=== PATIENT | female | born 1980 | race Caucasian/White ===

== ENCOUNTER 2019-05-20 17:11 | Emergency (ER) | payer MEDICAID ==
[~2019-05-20] VITALS: Ht 167.6 cm; Wt 81.0 kg
[2019-05-20 17:42] LABS: CLARITY,URINE CLEAR (Clear); COLOR,URINE YELLOW (Yellow); GLUCOSE, URINE NEGATIVE (Neg); KETONES,URINE NEGATIVE (Neg); LEUKOCYTE ESTERASE ,URINE NEGATIVE (Neg); NITRITES, URINE NEGATIVE (Neg); OCCULT BLOOD,URINE LARGE (Neg); PROTEIN,URINE NEGATIVE (Neg); UA COLLECTION TYPE CLN CATCH MIDSTREAM; URINE HCG NEGATIVE (NEG); UROBILINOGEN,URINE 0.2 E.U/dL (0.2-1.0)
[2019-05-20 17:48] LABS: BACTERIA,URINE 1+ /HPF (Neg); WBC,URINE 0-4 /HPF (0-4)
[2019-05-20 17:50] LABS: SPERM FEW /HPF; SQUAMOUS EPITHELIAL CELL,UR MANY /LPF (FEW)
[2019-05-20 17:52] LABS: MUCUS STRANDS NONE SEEN /LPF (Neg)
[2019-05-20] MEDS ORDERED: ondansetron/PF 4mg/2ml inj IV ONE (18:05)
[2019-05-20] MEDS ORDERED: normal saline 1000ML IV soln IVB ONE (18:05)
[2019-05-20] MEDS: morphine 4 MG/ML inj SYRINge IV PRN ×2 (18:18→19:33)
[2019-05-20 18:29] LABS: BASOPHILS % (AUTO) 0.2 % (0-1); EOSINOPHILS # (AUTO) 0.1 X10'3 (0-0.9); HEMATOCRIT 44.8 % (35.0-45.0); HEMOGLOBIN 15.4 g/dl (12.0-16.0); LYMPHOCYTES # (AUTO) 2.3 X10'3 (1.1-4.8); LYMPHOCYTES % (AUTO) 23.4 % (21-51); MEAN CORPUSCULAR HEMOGLOBIN 31.1 PG (27.0-31.0); MEAN CORPUSCULAR HGB CONC 34.4 g/dL (33.0-36.5); MEAN CORPUSCULAR VOLUME 90.2 FL (78-98); MEAN PLATELET VOLUME 8.1 FL (7.4-10.4); MONOCYTES # (AUTO) 0.7 X10'3 (0-0.9); MONOCYTES % (AUTO) 6.7 % (2-12); NEUTROPHILS # (AUTO) 6.8 X10'3 (1.8-7.7); NEUTROPHILS % (AUTO) 68.7 % (42-75); PLATELET COUNT 307 X10'3 (140-440); RED BLOOD COUNT 4.97 X10'6 (4.20-5.60); RED CELL DISTRIBUTION WIDTH 13.9 % (11.5-14.5); WHITE BLOOD COUNT 9.9 X10'3 (4.5-11.0)
[2019-05-20 18:44] LABS: ALANINE AMINOTRANSFERASE 30 U/L (12-78); ALKALINE PHOSPHATASE 58 IU/L (46-116); ANION GAP 10 (8-16); ASPARTATE AMINO TRANSFERASE 27 U/L (10-37); BILIRUBIN,TOTAL 0.6 MG/DL (0.1-1.0); BLOOD UREA NITROGEN 9 MG/DL (7-18); BUN/CREATININE RATIO 10.3 (6.6-38.0); CHLORIDE 103 MMOL/L (99-107); CREATININE 0.87 MG/DL (0.40-0.90); GLUCOSE 94 MG/DL (70-104); LIPASE 69 U/L (73-393); POTASSIUM 4.3 MMOL/L (3.5-5.1); SODIUM 139 MMOL/L (135-145); TOTAL CARBON DIOXIDE 26.1 MMOL/L (24-32); eGFR 73 ML/MIN
[2019-05-20] MEDS ORDERED: HYDR-3965 PO (19:22)
[2019-05-20 19:29] VITALS: BP 149/97
== END 2019-05-20 19:53 | disposition home or self-care (01) ==
LOC: ER 17:11
DX: N23 Unspecified renal colic (principal); Z88.0 Allergy status to penicillin; Z79.899 Other long term (current) drug therapy
CPT/HCPCS: 36415; 74176; 80053; 81001; 81025; 83690; 85025; 96374; 96375; 96376; 99284; J2270; J2405; J7030

== ENCOUNTER 2019-06-03 16:47 | Inpatient (IN) | payer MEDICAID ==
[~2019-06-03] VITALS: Ht 167.6 cm; Wt 80.0 kg
[~2019-06-03 16:47] MED LIST: HYDR-3965 PO
--- NOTE | 2019-06-03 17:18 | NUR ---
DEE WITH LAB CALLED STATES URINE SAMPLE SENT BY PT IS NOT ENOUGH TO PROCESS, PT WILL NEED TO PROVIDE ANOTHER SAMPLE ONCE SHE IS PLACED IN A ROOM.
[2019-06-03 17:25] LABS: BASOPHILS % (AUTO) 0.2 % (0-1); EOSINOPHILS # (AUTO) 0.1 X10'3 (0-0.9); EOSINOPHILS % (AUTO) 0.8 % (0-6); HEMATOCRIT 45.2 % (35.0-45.0); HEMOGLOBIN 15.7 g/dl (12.0-16.0); LYMPHOCYTES % (AUTO) 9.1 % (21-51); MEAN CORPUSCULAR HEMOGLOBIN 31.2 PG (27.0-31.0); MEAN CORPUSCULAR HGB CONC 34.8 g/dL (33.0-36.5); MEAN CORPUSCULAR VOLUME 89.7 FL (78-98); MEAN PLATELET VOLUME 8.3 FL (7.4-10.4); MONOCYTES # (AUTO) 0.5 X10'3 (0-0.9); MONOCYTES % (AUTO) 4.6 % (2-12); NEUTROPHILS # (AUTO) 9.5 X10'3 (1.8-7.7); NEUTROPHILS % (AUTO) 85.3 % (42-75); PLATELET COUNT 313 X10'3 (140-440); RED BLOOD COUNT 5.04 X10'6 (4.20-5.60); RED CELL DISTRIBUTION WIDTH 13.3 % (11.5-14.5); WHITE BLOOD COUNT 11.2 X10'3 (4.5-11.0)
[2019-06-03 17:40] LABS: ALANINE AMINOTRANSFERASE 46 U/L (12-78); ALBUMIN 4.1 G/DL (3.4-5.0); ALBUMIN/GLOBULIN RATIO 1.1 (1.1-1.5); ALKALINE PHOSPHATASE 57 IU/L (46-116); AMYLASE 24 U/L (25-115); ANION GAP 12 (8-16); ASPARTATE AMINO TRANSFERASE 42 U/L (10-37); BILIRUBIN,TOTAL 1.1 MG/DL (0.1-1.0); BLOOD UREA NITROGEN 5 MG/DL (7-18); BUN/CREATININE RATIO 5.5 (6.6-38.0); CALCIUM 9.3 MG/DL (8.5-10.1); CHLORIDE 98 MMOL/L (99-107); CREATININE 0.91 MG/DL (0.40-0.90); GLUCOSE 112 MG/DL (70-104); LIPASE < 50 U/L (73-393); POTASSIUM 3.6 MMOL/L (3.5-5.1); SODIUM 137 MMOL/L (135-145); eGFR 70 ML/MIN
[2019-06-03] MEDS ORDERED: normal saline 1000ML IV soln IVB ONE ×2 (18:55→21:05)
[2019-06-03 19:18] LABS: MONOTEST NEGATIVE (Neg)
[2019-06-03] MEDS ORDERED: ondansetron/PF 4mg/2ml inj IV ONE (20:00)
[2019-06-03] MEDS ORDERED: morphine 4 MG/ML inj SYRINge IV ONE (20:00)
[2019-06-03] MEDS ORDERED: acetaminophen 325mg tablet PO ONE (21:15)
[2019-06-03] MEDS ORDERED: LORazepam 2 mg/ml vial IV ONE (22:05)
[2019-06-03] MEDS ORDERED: CefTRIAXone 2gm/D5W 50ml 50 ML IV ONE (22:15)
[2019-06-03 23:28] LABS: CLARITY,URINE SLIGHTLY CLOUDY (Clear); COLOR,URINE YELLOW (Yellow); GLUCOSE, URINE NEGATIVE (Neg); KETONES,URINE >=80 mg/dl (Neg); LEUKOCYTE ESTERASE ,URINE NEGATIVE (Neg); NITRITES, URINE NEGATIVE (Neg); OCCULT BLOOD,URINE LARGE (Neg); PROTEIN,URINE NEGATIVE (Neg); URINE HCG NEGATIVE (NEG)
[2019-06-03 23:33] LABS: UA COLLECTION TYPE CLN CATCH MIDSTREAM
[2019-06-03 23:35] LABS: WBC,URINE 0-4 /HPF (0-4)
[2019-06-03 23:36] LABS: BACTERIA,URINE NONE SEEN /HPF (Neg); MUCUS STRANDS FEW /LPF (Neg); SQUAMOUS EPITHELIAL CELL,UR FEW /LPF (FEW)
[2019-06-04] MEDS ORDERED: magnesium hydroxide 30ml (MOM) UD suspension PO PRN (00:50)
[2019-06-04] MEDS ORDERED: mag hydrox/Alum hydrox/simeth 30ml oral suspension PO PRN (00:50)
[2019-06-04] MEDS ORDERED: HYDROcodone/acetaminophen 5mg/325mg tablet PO PRN (00:50)
[2019-06-04] MEDS ORDERED: HYDROcodone/acetaminophen 10/325mg tab PO PRN (00:50)
[2019-06-04] MEDS ORDERED: potassium CL 10mEq/100ml bag 100 ML IV PRN ×2 (00:50)
[2019-06-04] MEDS ORDERED: magnesium 2GM in 50ml NS 50 ML IV PRN (00:50)
[2019-06-04] MEDS ORDERED: diphenhydrAMINE 25mg capsule PO ONE (00:50)
[2019-06-04] MEDS ORDERED: magnesium 4gm in 100ml NS 100 ML IV PRN (00:50)
[2019-06-04] MEDS ORDERED: magnesium Cl slow-release 64mg tablet PO PRN (00:50)
[2019-06-04] MEDS ORDERED: methylPREDNISolone sod succ 125mg/2ml vial IV ONE (00:50)
[2019-06-04] MEDS ORDERED: acetaminophen 325mg tablet PO PRN (00:50)
[2019-06-04] MEDS ORDERED: potassium Cl 20 mEq SR tablet PO PRN ×2 (00:50)
[2019-06-04] MEDS: ondansetron/PF 4mg/2ml inj IV PRN ×2 (01:36→08:11)
[2019-06-04] MEDS: famotidine 10mg tablet PO SCH ×2 (01:42→08:15)
[2019-06-04] MEDS: normal saline 1000ml 1,000 ML IV SCH ×3 (01:42→08:09)
--- NOTE | 2019-06-04 01:51 | NUR ---
Patient in room ED 15. I have received report from LIOR Boothe RN and had the opportunity to ask questions and assume patient care.
[2019-06-04] MEDS: diphenhydrAMINE 25mg capsule PO SCH ×2 (02:00→08:08)
[2019-06-04 03:45] VITALS: BP 126/78
--- NOTE | 2019-06-04 06:26 | NUR ---
Problems reprioritized. Patient report given, questions answered & plan of care reviewed with CYN Rios.
[2019-06-04 07:04] VITALS: BP 120/76
[2019-06-04] MEDS ORDERED: CefTRIAXone/D5W-Rocephin 1gm 50 ML IV SCH (08:00)
[2019-06-04] MEDS ORDERED: K and/or MAG REPLACEMENT MC SCH (08:00)
[2019-06-04] MEDS ORDERED: ONDA4TAB6 PO (10:40)
[2019-06-04 11:56] VITALS: BP 118/71
--- NOTE | 2019-06-04 13:41 | NUR ---
PT DISCHARGED IN STABLE CONDITION. LEFT FACILITY IN PRIVATE VEHICLE. 2 IV DC CANULAS INTACT. FOLLOW UP INSTRUCTIONS GIVEN, ALL QUESTIONS ANSWERED. ALL BELONGINGS IN HAND. Addendum: 06/04/19 at 1343 by Lara Owen RN Amended: Links added.
== END 2019-06-04 12:49 | disposition home or self-care (01) | DRG 723 ==
LOC: ER 16:47 → ED HOLD 06-04 00:50 → SUR 3N 06-04 02:00
PROVIDERS: ADMIT Family Medicine; ATTEND Internal Medicine
DX: B34.9 Viral infection, unspecified (principal); E88.89 Other specified metabolic disorders; N20.9 Urinary calculus, unspecified; R00.0 Tachycardia, unspecified; R21 Rash and other nonspecific skin eruption; Z85.41 Personal history of malignant neoplasm of cervix uteri; Z90.49 Acquired absence of other specified parts of digestive tract; Z90.710 Acquired absence of both cervix and uterus; Z88.0 Allergy status to penicillin; Z79.899 Other long term (current) drug therapy; Z87.891 Personal history of nicotine dependence
CPT/HCPCS: 36415; 74176; 76700; 80053; 81001; 81025; 82150; 83605; 83690; 84145; 85025; 85651; 86140; 86308; 87040; 87081; 87502; 87503; 96365; 96375; 99285; G0378; J0696; J2060; J2270; J2405; J2930; J7030; Q0163

== ENCOUNTER 2020-10-16 15:00 | Emergency (ER) | payer MEDICAID ==
[~2020-10-16] VITALS: Ht 167.6 cm; Wt 63.6 kg
[~2020-10-16 15:00] MED LIST changes: -HYDR-3965 PO; +ONDA4TAB6 PO
[2020-10-16] MEDS ORDERED: ondansetron 4mg rapidly disintigrating tab PO ONE (15:30)
[2020-10-16] MEDS ORDERED: morphine 4 MG/ML inj SYRINge IM ONE (15:30)
--- NOTE | 2020-10-16 16:10 | NUR ---
MD colón with Morphine given IV, given 4 mg IV Morphine instead of 6 mg IM
[2020-10-16 16:11] VITALS: BP 135/54
[2020-10-16] MEDS ORDERED: HYDR-3965 PO (16:42)
== END 2020-10-16 17:13 | disposition home or self-care (01) ==
LOC: ER 15:00
DX: S70.02XA Contusion of left hip, initial encounter (principal); S60.052A Contusion of left little finger without damage to nail, initial encounter; S00.81XA Abrasion of other part of head, initial encounter; M54.5 Low back pain; Z87.442 Personal history of urinary calculi; Z90.49 Acquired absence of other specified parts of digestive tract; Z90.710 Acquired absence of both cervix and uterus; Z88.0 Allergy status to penicillin; Z79.899 Other long term (current) drug therapy; Z72.89 Other problems related to lifestyle; V86.99XA Unspecified occupant of other special all-terrain or other off-road motor vehicle injured in nontraffic accident, initial encounter; Y93.89 Activity, other specified; Y92.488 Other paved roadways as the place of occurrence of the external cause; Y99.8 Other external cause status
CPT/HCPCS: 72131; 72192; 73140; 96372; 99285; J2270

== ENCOUNTER 2020-11-16 13:29 | Emergency (ER) | payer MEDICAID ==
[~2020-11-16] VITALS: Ht 167.6 cm; Wt 63.6 kg
[2020-11-16 13:42] VITALS: BP 162/88
[2020-11-16] MEDS ORDERED: ketorolac tromethamine 15mg/ml inj. IM ONE (14:45)
[2020-11-16] MEDS ORDERED: IBUP-1984 PO (14:54)
== END 2020-11-16 15:28 | disposition home or self-care (01) ==
LOC: ER 13:29
DX: S80.11XA Contusion of right lower leg, initial encounter (principal); M25.571 Pain in right ankle and joints of right foot; M25.561 Pain in right knee; Z88.0 Allergy status to penicillin; Z79.899 Other long term (current) drug therapy; Z87.442 Personal history of urinary calculi; Z87.440 Personal history of urinary (tract) infections; Z87.410 Personal history of cervical dysplasia; Z90.49 Acquired absence of other specified parts of digestive tract; Z90.710 Acquired absence of both cervix and uterus; Z72.89 Other problems related to lifestyle; W22.8XXA Striking against or struck by other objects, initial encounter; Y93.89 Activity, other specified; Y92.89 Other specified places as the place of occurrence of the external cause; Y99.8 Other external cause status
CPT/HCPCS: 73610; 73630; 96372; 99284; J1885

== ENCOUNTER 2020-12-04 19:09 | Emergency (ER) | payer MEDICAID ==
[~2020-12-04] VITALS: Ht 167.6 cm; Wt 63.0 kg
[2020-12-04] MEDS ORDERED: PROP40TA72 PO (21:17)
[2020-12-04] MEDS ORDERED: ketorolac trometh. 30mg/ml inj. IM ONE (22:15)
[2020-12-04] MEDS ORDERED: METH4TAB81 PO (23:46)
[2020-12-04] MEDS ORDERED: COLC1TAB2 PO (23:46)
[2020-12-04 23:52] VITALS: BP 124/85
== END 2020-12-04 23:59 | disposition home or self-care (01) ==
LOC: ER 19:09
DX: M25.531 Pain in right wrist (principal); Z87.440 Personal history of urinary (tract) infections; Z85.41 Personal history of malignant neoplasm of cervix uteri; Z90.89 Acquired absence of other organs; Z90.710 Acquired absence of both cervix and uterus; Z72.89 Other problems related to lifestyle; Z88.0 Allergy status to penicillin; Z79.899 Other long term (current) drug therapy
CPT/HCPCS: 73110; 73130; 96372; 99284; J1885

== ENCOUNTER 2020-12-11 02:32 | Emergency (ER) | payer MEDICAID ==
[~2020-12-11] VITALS: Ht 167.6 cm; Wt 65.0 kg
[~2020-12-11 02:32] MED LIST changes: +COLC1TAB2 PO; +METH4TAB81 PO; +PROP40TA72 PO
[2020-12-11] MEDS ORDERED: colchicine 0.6mg tablet PO ONE (04:00)
[2020-12-11] MEDS ORDERED: naproxen 500mg tablet PO ONE (04:00)
[2020-12-11 04:34] LABS: ALANINE AMINOTRANSFERASE 46 U/L (12-78); ALBUMIN 3.2 G/DL (3.4-5.0); ALBUMIN/GLOBULIN RATIO 0.6 (1.1-1.5); ALKALINE PHOSPHATASE 66 IU/L (46-116); ANION GAP 15 (8-16); ASPARTATE AMINO TRANSFERASE 31 U/L (10-37); BILIRUBIN,TOTAL 0.2 MG/DL (0.1-1.0); BLOOD UREA NITROGEN 5 MG/DL (7-18); BUN/CREATININE RATIO 8.2 (6.6-38.0); C-REACTIVE PROTEIN 3.62 MG/DL (0.0-0.5); CALCIUM 8.8 MG/DL (8.5-10.1); CHLORIDE 103 MMOL/L (99-107); CREATININE 0.61 MG/DL (0.40-0.90); GLUCOSE 83 MG/DL (70-104); POTASSIUM 3.5 MMOL/L (3.5-5.1); SODIUM 140 MMOL/L (135-145); TOTAL CARBON DIOXIDE 22.4 MMOL/L (24-32); TOTAL PROTEIN 8.2 G/DL (6.4-8.2); eGFR > 90 ML/MIN
[2020-12-11 04:48] LABS: EOSINOPHILS # (AUTO) 0.1 X10'3 (0-0.9); LYMPHOCYTES # (AUTO) 2.5 X10'3 (1.1-4.8); MONOCYTES # (AUTO) 0.7 X10'3 (0-0.9); RED CELL DISTRIBUTION WIDTH 13.4 % (11.5-14.5); WHITE BLOOD COUNT 12.6 X10'3 (4.5-11.0)
[2020-12-11 05:03] LABS: RHEUM FACTOR QUAL REFLEX TITER NEGATIVE (Neg)
[2020-12-11 05:04] LABS: BASOPHILS % (AUTO) 0.2 % (0-1); EOSINOPHILS % (AUTO) 0.7 % (0-6); HEMATOCRIT 43.3 % (35.0-45.0); HEMOGLOBIN 14.9 g/dl (12.0-16.0); LYMPHOCYTES % (AUTO) 20.1 % (21-51); MEAN CORPUSCULAR HEMOGLOBIN 32.7 PG (27.0-31.0); MEAN CORPUSCULAR HGB CONC 34.4 g/dL (33.0-36.5); MEAN PLATELET VOLUME 6.9 FL (7.4-10.4); MONOCYTES % (AUTO) 5.7 % (2-12); NEUTROPHILS # (AUTO) 9.2 X10'3 (1.8-7.7); NEUTROPHILS % (AUTO) 73.3 % (42-75); PLATELET COUNT 535 X10'3 (140-440); RED BLOOD COUNT 4.56 X10'6 (4.20-5.60)
[2020-12-11 06:45] LABS: TOTAL CELLS COUNTED 100
[2020-12-11 06:46] LABS: PLATELET ESTIMATE INCREASED
[2020-12-11 06:47] LABS: STOMATOCYTES 1+
[2020-12-11] MEDS ORDERED: morphine 4 MG/ML inj SYRINge IV ONE ×3 (08:15→09:35)
[2020-12-11] MEDS ORDERED: HYDROcodone/acetaminophen 10/325mg tab PO ONE (11:25)
[2020-12-11] MEDS ORDERED: ondansetron/PF 4mg/2ml inj IV ONE (11:25)
[2020-12-11] MEDS ORDERED: HYDR-3964 PO (11:27)
[2020-12-11] MEDS ORDERED: ONDA4TAB6 PO (11:27)
[2020-12-11 11:57] VITALS: BP 127/83
== END 2020-12-11 11:58 | disposition home or self-care (01) ==
LOC: ER 02:32
DX: M25.531 Pain in right wrist (principal); M25.431 Effusion, right wrist; Z88.0 Allergy status to penicillin; Z79.899 Other long term (current) drug therapy; Z87.442 Personal history of urinary calculi; Z87.440 Personal history of urinary (tract) infections; Z87.410 Personal history of cervical dysplasia; Z90.49 Acquired absence of other specified parts of digestive tract; Z90.710 Acquired absence of both cervix and uterus
CPT/HCPCS: 29125; 73221; 80053; 84550; 85007; 85025; 85651; 86140; 86430; 96374; 96375; 96376; 99284; J2270; J2405; 94760

== ENCOUNTER 2021-01-04 23:37 | Emergency (ER) | payer MEDICAID ==
[~2021-01-04] VITALS: Ht 167.6 cm; Wt 63.2 kg
[~2021-01-04 23:37] MED LIST changes: +HYDR-3964 PO
[2021-01-04 23:39] VITALS: BP 156/81
[2021-01-05] MEDS ORDERED: TETanus/Pertussis (Acell)/Diphther VAC/PF (Tdap-Adult) 0.5ml syringe IMVAC ONE (00:35)
== END 2021-01-05 01:15 | disposition home or self-care (01) ==
LOC: ER 23:37
DX: S60.211A Contusion of right wrist, initial encounter (principal); S00.531A Contusion of lip, initial encounter; S00.31XA Abrasion of nose, initial encounter; R22.0 Localized swelling, mass and lump, head; Z87.410 Personal history of cervical dysplasia; Z87.440 Personal history of urinary (tract) infections; Z87.442 Personal history of urinary calculi; Z90.49 Acquired absence of other specified parts of digestive tract; Z90.710 Acquired absence of both cervix and uterus; Z88.0 Allergy status to penicillin; Z79.899 Other long term (current) drug therapy; W19.XXXA Unspecified fall, initial encounter; Z91.81 History of falling; Y93.89 Activity, other specified; Y92.89 Other specified places as the place of occurrence of the external cause; Y99.8 Other external cause status
CPT/HCPCS: 73130; 90715; 99284

== ENCOUNTER 2021-10-23 10:04 | Emergency (ER) | payer MEDICAID ==
[~2021-10-23] VITALS: Ht 167.6 cm; Wt 63.6 kg
[~2021-10-23 10:04] MED LIST changes: -HYDR-3964 PO
[2021-10-23 10:33] VITALS: BP 158/86
[2021-10-23] MEDS ORDERED: dexamethasone sod phosphate 10mg/ml inj PO STA (13:30)
[2021-10-23] MEDS ORDERED: triamcinolone acetonide 40mg/ml inj IM ONE (14:15)
== END 2021-10-23 14:46 | disposition home or self-care (01) ==
LOC: ER 10:05
DX: J02.9 Acute pharyngitis, unspecified (principal); L23.7 Allergic contact dermatitis due to plants, except food; Z87.440 Personal history of urinary (tract) infections; Z87.442 Personal history of urinary calculi; Z87.410 Personal history of cervical dysplasia; Z90.49 Acquired absence of other specified parts of digestive tract; Z90.710 Acquired absence of both cervix and uterus; Z88.0 Allergy status to penicillin; Z79.899 Other long term (current) drug therapy
CPT/HCPCS: 87081; 87880; 96372; 99283; J1100; J3301

== ENCOUNTER 2021-12-13 23:37 | Emergency (ER) | payer MEDICAID, OTHER ==
[~2021-12-13] VITALS: Ht 167.6 cm; Wt 63.6 kg
[2021-12-14 00:38] LABS: URINE HCG NEGATIVE (NEG)
[2021-12-14 00:39] LABS: BASOPHILS % (AUTO) 0.4 % (0-1); EOSINOPHILS # (AUTO) 0.1 X10'3 (0-0.9); EOSINOPHILS % (AUTO) 0.7 % (0-6); HEMATOCRIT 43.7 % (35.0-45.0); HEMOGLOBIN 14.7 g/dl (12.0-16.0); LYMPHOCYTES # (AUTO) 2.8 X10'3 (1.1-4.8); LYMPHOCYTES % (AUTO) 36.8 % (21-51); MEAN CORPUSCULAR HEMOGLOBIN 31.4 PG (27.0-31.0); MEAN CORPUSCULAR HGB CONC 33.7 g/dL (33.0-36.5); MEAN CORPUSCULAR VOLUME 93.2 FL (78-98); MEAN PLATELET VOLUME 7.5 FL (7.4-10.4); MONOCYTES # (AUTO) 0.5 X10'3 (0-0.9); MONOCYTES % (AUTO) 6.3 % (2-12); NEUTROPHILS # (AUTO) 4.2 X10'3 (1.8-7.7); NEUTROPHILS % (AUTO) 55.8 % (42-75); PLATELET COUNT 281 X10'3 (140-440); RED BLOOD COUNT 4.69 X10'6 (4.20-5.60); RED CELL DISTRIBUTION WIDTH 13.9 % (11.5-14.5); WHITE BLOOD COUNT 7.6 X10'3 (4.5-11.0)
[2021-12-14 00:43] LABS: URINE AMPHETAMINE SCREEN NEGATIVE (Neg); URINE BARBITUATE SCREEN NEGATIVE (Neg); URINE BENZODIAZEPINES SCREEN NEGATIVE (Neg); URINE CANNABINOID SCREEN NEGATIVE (Neg); URINE COCAINE SCREEN NEGATIVE (Neg); URINE METHADONE SCREEN NEGATIVE (Neg); URINE OPIATE SCREEN NEGATIVE (Neg); URINE PHENCYCLIDINE SCREEN NEGATIVE (Neg)
[2021-12-14 00:52] LABS: ALANINE AMINOTRANSFERASE 79 U/L (12-78); ALBUMIN 3.7 G/DL (3.4-5.0); ALKALINE PHOSPHATASE 54 IU/L (46-116); ANION GAP 11 (8-16); ASPARTATE AMINO TRANSFERASE 91 U/L (10-37); BILIRUBIN,TOTAL 0.3 MG/DL (0.1-1.0); BLOOD UREA NITROGEN 5 MG/DL (7-18); BUN/CREATININE RATIO 7.4 (6.6-38.0); CALCIUM 8.2 MG/DL (8.5-10.1); CHLORIDE 102 MMOL/L (99-107); CREATININE 0.68 MG/DL (0.40-0.90); GLUCOSE 95 MG/DL (70-104); POTASSIUM 3.7 MMOL/L (3.5-5.1); SODIUM 139 MMOL/L (135-145); TOTAL PROTEIN 7.3 G/DL (6.4-8.2); eGFR > 90 ML/MIN
[2021-12-14 00:54] LABS: ETHANOL 0.308 GM/DL (0.0-0.010)
[2021-12-14 01:09] LABS: ACETAMINOPHEN < 2.0 UG/ML (10-30)
--- NOTE | 2021-12-14 03:38 | NUR ---
Gave report to CYN Valle in overflow.
--- NOTE | 2021-12-14 03:50 | NUR ---
Patient brought over from ED and placed in bed 25. Pt is pleasant and in no apparent distress. Pt stated she was tired and wanting to go to sleep. Pt was brought an extra blanket and is now resting with her eyes closed.
--- NOTE | 2021-12-14 04:12 | NUR ---
[facility]
--- NOTE | 2021-12-14 05:34 | NUR ---
Pt is sleeping on right side. RN asked pt if she took any daily meds to fill out med rec and she stated that she does not. Pt seemed very pleasant and respectful.
--- NOTE | 2021-12-14 06:40 | NUR ---
Patient sleeping supine. No distress observed. Continue to monitor.
--- NOTE | 2021-12-14 08:17 | NUR ---
RN awoke patient to eat breakfast but patient went back to sleep. No distress observed. Continue to monitor.
--- NOTE | 2021-12-14 09:40 | NUR ---
Patient speaking to her significant other on the phone. No distress observed. Continue to monitor.
--- NOTE | 2021-12-14 10:51 | NUR ---
Patient on the phone speaking to her brother. No distress observed. Continue to monitor.
--- NOTE | 2021-12-14 11:21 | NUR ---
Briana [facility], evaluating patient. No distress observed. Continue to monitor.
--- NOTE | 2021-12-14 11:32 | NUR ---
[facility] 5150 [facility]. Patient feels she is in a dark place and doesn't feel safe to go home. Continue to monitor.
--- NOTE | 2021-12-14 12:11 | NUR ---
Patient eating lunch. No distress observed. Continue to monitor.
--- NOTE | 2021-12-14 14:07 | NUR ---
Patient sleeping on left side. No distress observed. Continue to monitor.
--- NOTE | 2021-12-14 15:20 | NUR ---
Patient accepted to [facility] by Dot Roberson NP. 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
--- NOTE | 2021-12-14 18:47 | NUR ---
Note ivánberyl in ED - 12/14/21 at 1856 by JEANNINE One to one with the patient to assess severity of depressive symptoms and self harm risk. The patient has been resting quietly on her bed after eating dinner and visiting with her mother. She is alert and oriented. She reports feeling fatigued and that she has not been sleeping well at night. She alos reports high anxiety which she describes as chronic "for years" She continues to feel suicidal and stated that she wishes her suicide attempt would have been successful last night. She stated that she doesn't feel she has anything worth living for in her life. She is aware that she is on a 5150 hold.
[2021-12-14 19:49] VITALS: BP 119/65
== END 2021-12-14 19:53 ==
LOC: ER 23:38
DX: T39.312A Poisoning by propionic acid derivatives, intentional self-harm, initial encounter (principal); Z20.822 Contact with and (suspected) exposure to COVID-19; R10.9 Unspecified abdominal pain; F17.200 Nicotine dependence, unspecified, uncomplicated; Z87.440 Personal history of urinary (tract) infections; Z87.442 Personal history of urinary calculi; Z87.410 Personal history of cervical dysplasia; Z90.49 Acquired absence of other specified parts of digestive tract; Z90.710 Acquired absence of both cervix and uterus; Z88.0 Allergy status to penicillin; Z79.899 Other long term (current) drug therapy; Y92.89 Other specified places as the place of occurrence of the external cause
CPT/HCPCS: 36415; 80053; 80305; 80320; 80329; 81025; 84443; 85025; 87635; 99285; C9803

== ENCOUNTER 2022-06-06 18:47 | Emergency (ER) | payer OTHER ==
[~2022-06-06] VITALS: Ht 167.6 cm; Wt 68.2 kg
[2022-06-06 19:17] VITALS: BP 122/66
== END 2022-06-06 20:51 | disposition left against medical advice (07) ==
LOC: ER 18:48
DX: R10.9 Unspecified abdominal pain (principal); Z53.21 Procedure and treatment not carried out due to patient leaving prior to being seen by health care provider

== ENCOUNTER 2022-11-22 22:30 | Emergency (ER) | payer MEDICAID, OTHER ==
[~2022-11-22] VITALS: Ht 167.6 cm; Wt 79.5 kg
[2022-11-22 22:54] LABS: BASOPHILS # (AUTO) 0.1 X10'3 (0-0.2); BASOPHILS % (AUTO) 1.1 % (0-1); EOSINOPHILS # (AUTO) 0.1 X10'3 (0-0.9); EOSINOPHILS % (AUTO) 1.2 % (0-6); HEMATOCRIT 46.3 % (35.0-45.0); HEMOGLOBIN 15.5 g/dl (12.0-16.0); MEAN CORPUSCULAR HEMOGLOBIN 29.4 PG (27.0-31.0); MEAN CORPUSCULAR HGB CONC 33.4 g/dL (33.0-36.5); MEAN CORPUSCULAR VOLUME 88.2 FL (78-98); MEAN PLATELET VOLUME 8.3 FL (7.4-10.4); MONOCYTES # (AUTO) 0.6 X10'3 (0-0.9); MONOCYTES % (AUTO) 6.7 % (2-12); NEUTROPHILS # (AUTO) 4.6 X10'3 (1.8-7.7); PLATELET COUNT 390 X10'3 (140-440); RED BLOOD COUNT 5.25 X10'6 (4.20-5.60); RED CELL DISTRIBUTION WIDTH 13.4 % (11.5-14.5); WHITE BLOOD COUNT 9.5 X10'3 (4.5-11.0)
[2022-11-22 23:11] LABS: ALANINE AMINOTRANSFERASE 21 U/L (12-78); ALBUMIN 4.5 G/DL (3.4-5.0); ALBUMIN/GLOBULIN RATIO 1.3 (1.1-1.5); ALKALINE PHOSPHATASE 56 IU/L (46-116); ANION GAP 9 (8-16); ASPARTATE AMINO TRANSFERASE 18 U/L (10-37); BILIRUBIN,TOTAL 0.4 MG/DL (0.1-1.0); BLOOD UREA NITROGEN 7 MG/DL (7-18); CALCIUM 9.3 MG/DL (8.5-10.1); CHLORIDE 108 MMOL/L (99-107); GLUCOSE 88 MG/DL (70-104); POTASSIUM 3.6 MMOL/L (3.5-5.1); SODIUM 141 MMOL/L (135-145); TOTAL CARBON DIOXIDE 24.1 MMOL/L (24-32); TOTAL PROTEIN 7.9 G/DL (6.4-8.2); eGFR > 90 ML/MIN
[2022-11-23] MEDS ORDERED: ONDA8TAB13 PO (00:37)
[2022-11-23] MEDS ORDERED: metoclopramide 10mg tablet PO ONE (00:40)
[2022-11-23 00:57] VITALS: BP 121/75
== END 2022-11-23 00:58 | disposition home or self-care (01) ==
LOC: ER 22:30
DX: R11.2 Nausea with vomiting, unspecified (principal); R19.7 Diarrhea, unspecified; R06.02 Shortness of breath; Z90.49 Acquired absence of other specified parts of digestive tract; Z90.710 Acquired absence of both cervix and uterus; Z87.442 Personal history of urinary calculi; Z88.0 Allergy status to penicillin; Z79.899 Other long term (current) drug therapy
CPT/HCPCS: 36415; 71045; 80053; 83880; 84484; 85025; 93005; 99285

== ENCOUNTER 2023-05-07 09:47 | Inpatient (IN) | payer MEDICAID ==
[~2023-05-07] VITALS: Ht 167.6 cm; Wt 85.9 kg
[2023-05-07] VITALS (12 sets, daily range): BP systolic 136–158; BP diastolic 67–94; PULSE 67–111; RESP 14–20; TEMP 97.6–98; O2SAT 97–98
[~2023-05-07 09:47] MED LIST changes: -COLC1TAB2 PO; -METH4TAB81 PO; -ONDA4TAB6 PO; +ONDA8TAB13 PO; -PROP40TA72 PO
[2023-05-07] MEDS ORDERED: ondansetron/PF 4mg/2ml inj IV ONE (09:55)
[2023-05-07] MEDS ORDERED: morphine 4 MG/ML inj SYRINge IV ONE ×2 (09:55→12:05)
[2023-05-07 10:54] LABS: BASOPHILS % (AUTO) 0.2 % (0-1); EOSINOPHILS # (AUTO) 0.1 X10'3 (0-0.9); EOSINOPHILS % (AUTO) 0.7 % (0-6); HEMATOCRIT 43.6 % (35.0-45.0); HEMOGLOBIN 14.8 g/dl (12.0-16.0); LYMPHOCYTES # (AUTO) 2.4 X10'3 (1.1-4.8); LYMPHOCYTES % (AUTO) 23.5 % (21-51); MEAN CORPUSCULAR HEMOGLOBIN 29.6 PG (27.0-31.0); MEAN CORPUSCULAR VOLUME 87.3 FL (78-98); MEAN PLATELET VOLUME 7.6 FL (7.4-10.4); MONOCYTES # (AUTO) 0.5 X10'3 (0-0.9); MONOCYTES % (AUTO) 4.8 % (2-12); NEUTROPHILS # (AUTO) 7.3 X10'3 (1.8-7.7); NEUTROPHILS % (AUTO) 70.8 % (42-75); PLATELET COUNT 364 X10'3 (140-440); RED CELL DISTRIBUTION WIDTH 13.3 % (11.5-14.5); WHITE BLOOD COUNT 10.3 X10'3 (4.5-11.0)
[2023-05-07 10:56] LABS: BILIRUBIN,URINE NEGATIVE (Neg); CLARITY,URINE CLOUDY (Clear); COLOR,URINE YELLOW (Yellow); GLUCOSE, URINE NEGATIVE (Neg); KETONES,URINE NEGATIVE (Neg); LEUKOCYTE ESTERASE ,URINE SMALL (Neg); NITRITES, URINE POSITIVE (Neg); OCCULT BLOOD,URINE MODERATE (Neg); PH,URINE 6.5 (4.8-8.0); PROTEIN,URINE 100 mg/dl (Neg); UROBILINOGEN,URINE 0.2 E.U/dL (0.2-1.0)
[2023-05-07 11:09] LABS: ALANINE AMINOTRANSFERASE 19 U/L (12-78); ALBUMIN 4.2 G/DL (3.4-5.0); ALBUMIN/GLOBULIN RATIO 1.1 (1.1-1.5); ALKALINE PHOSPHATASE 59 IU/L (46-116); AMYLASE 49 U/L (25-115); ANION GAP 11 (8-16); ASPARTATE AMINO TRANSFERASE 18 U/L (10-37); BILIRUBIN,TOTAL 0.6 MG/DL (0.1-1.0); BLOOD UREA NITROGEN 8 MG/DL (7-18); BUN/CREATININE RATIO 10.8 (10.0-20.0); CALCIUM 9.6 MG/DL (8.5-10.1); CHLORIDE 100 MMOL/L (99-107); CREATININE 0.74 MG/DL (0.40-0.90); GLUCOSE 95 MG/DL (70-104); LIPASE 23 U/L (16-77); POTASSIUM 3.7 MMOL/L (3.5-5.1); SODIUM 137 MMOL/L (135-145); TOTAL CARBON DIOXIDE 26.1 MMOL/L (24-32); TOTAL PROTEIN 8.1 G/DL (6.4-8.2); eCRCL 95 ML/MIN; eGFR 87 ML/MIN
[2023-05-07 11:09] LABS: SQUAMOUS EPITHELIAL CELL,UR MANY /LPF (FEW); UA COLLECTION TYPE CLN CATCH MIDSTREAM
[2023-05-07 11:10] LABS: BACTERIA,URINE 4+ /HPF (Neg); WBC CLUMPS,URINE MANY /HPF (NEGATIVE); WBC,URINE TNTC /HPF (0-4)
[2023-05-07 11:11] LABS: RBC,URINE TNTC /HPF (0-2)
[2023-05-07] MEDS ORDERED: ketorolac tromethamine 15mg/ml inj. IV ONE (12:05)
[2023-05-07] MEDS ORDERED: normal saline 1000ml 1,000 ML IV ONE (12:05)
[2023-05-07] MEDS ORDERED: ondansetron/PF 4mg/2ml inj IM ONE (12:05)
[2023-05-07] MEDS ORDERED: morphine 2 MG/ML inj. syringe IV PRN ×2 (13:05→18:20)
[2023-05-07] MEDS ORDERED: potassium Cl 20 mEq SR tablet PO PRN ×2 (13:05)
[2023-05-07] MEDS ORDERED: magnesium hydroxide 30ml (MOM) UD suspension PO PRN (13:05)
[2023-05-07] MEDS ORDERED: HYDROcodone/acetaminophen 5mg/325mg tablet PO PRN (13:05)
[2023-05-07] MEDS ORDERED: acetaminophen 325mg tablet PO PRN ×2 (13:05)
[2023-05-07] MEDS ORDERED: magnesium 2GM in 50ml NS 50 ML IV PRN (13:05)
[2023-05-07] MEDS ORDERED: magnesium Cl slow-release 64mg tablet PO PRN (13:05)
[2023-05-07] MEDS ORDERED: mag hydrox/Alum hydrox/simeth 30ml oral suspension PO PRN (13:05)
[2023-05-07] MEDS ORDERED: magnesium 4gm in 100ml NS 100 ML IV PRN (13:05)
[2023-05-07] MEDS ORDERED: potassium Cl 40MEQ/1/2NS 520ml 520 ML IV PRN (13:05)
[2023-05-07] MEDS ORDERED: HYDROmorphone 1 mg/ml syringe IV ONE (13:15)
--- NOTE | 2023-05-07 13:20 | NUR ---
called pharmacy to verify dilaudid so can be pulled from [facility].
--- NOTE | 2023-05-07 13:32 | NUR ---
DR. WINTERS AT BEDSIDE WANTS [facility]. CATH FOR PT. AND REPEAT URINALYSIS. PT AGREED.
--- NOTE | 2023-05-07 13:33 | NUR ---
DR. WINTERS DOES NOT WANT ANTIBIOTIC GIVEN UNTIL NEW URINE COLLECTED.
--- NOTE | 2023-05-07 13:45 | NUR ---
dr. rondon and resident at bedside. Dr. Rondon wants antibiotic given now.
[2023-05-07 13:50] LABS: BILIRUBIN,URINE NEGATIVE (Neg); CLARITY,URINE CLOUDY (Clear); COLOR,URINE YELLOW (Yellow); GLUCOSE, URINE NEGATIVE (Neg); KETONES,URINE 15 mg/dl (Neg); LEUKOCYTE ESTERASE ,URINE MODERATE (Neg); NITRITES, URINE POSITIVE (Neg); OCCULT BLOOD,URINE MODERATE (Neg); PROTEIN,URINE TRACE mg/dl (Neg); UROBILINOGEN,URINE 0.2 E.U/dL (0.2-1.0)
[2023-05-07 13:55] LABS: UA COLLECTION TYPE STRAIGHT CATH
[2023-05-07 13:56] LABS: SQUAMOUS EPITHELIAL CELL,UR MANY /LPF (FEW)
[2023-05-07 13:57] LABS: BACTERIA,URINE 4+ /HPF (Neg); TRANSITIONAL EPI CELLS,URINE MODERATE /HPF; WBC CLUMPS,URINE MANY /HPF (NEGATIVE)
[2023-05-07 13:58] LABS: RBC,URINE TNTC /HPF (0-2); WBC,URINE TNTC /HPF (0-4)
[2023-05-07] MEDS ORDERED: NO HOME MEDS (14:55)
[2023-05-07] MEDS: normal saline 1000ml 1,000 ML IV SCH (14:55)
[2023-05-07] MEDS: CefTRIAXone 2gm/D5W 50ml BAG 50 ML IV SCH (14:57)
[2023-05-07] MEDS ORDERED: cefepime 2g/NS 100ml ADVANTAGE 100 ML IV ONE (16:00)
--- NOTE | 2023-05-07 17:03 | NUR ---
OR came to transport pt directly to OR dept. All belongings w/patient, abx complete, report called to [facility] and let them know pt is going straight to OR.
[2023-05-07] MEDS ORDERED: iohexol 300 MG/1 ML 50ml polymer ONE (18:02)
[2023-05-07] MEDS ORDERED: meperidine/PF 25mg/ml syringe IV PRN ×2 (18:20)
[2023-05-07] MEDS ORDERED: proCHLORperazine 10 MG/2 ml inj IV PRN (18:20)
[2023-05-07] MEDS ORDERED: morphine 4 MG/ML inj SYRINge IV PRN (18:20)
[2023-05-07] MEDS ORDERED: ringers solution, lacted 1,000 ML IV SCH (18:20)
[2023-05-07] MEDS ORDERED: ondansetron/PF 4mg/2ml inj IV PRN (18:20)
[2023-05-07] MEDS ORDERED: propofol inj 20 ML IV ONE (18:53)
[2023-05-07] MEDS ORDERED: midazolam 1 mg/ML 2ml injection ONE (18:53)
[2023-05-07] MEDS ORDERED: fentaNYL/PF 50MCG/1 ML 2ML syringe ONE (18:53)
[2023-05-07] MEDS ORDERED: iohexol 300mg/ml 100ml inj. IV ONE (19:40)
--- NOTE | 2023-05-07 19:50 | NUR ---
Received from OR via , accompanied by Anesthesiologist and report given by Anesthesiolgist. PATIENT A&OX4, NO DRESSINGS NO DRAINAGE, 20G PIV RUE, V/S WNL, SCM INTACT, SCD ON.
[2023-05-07] MEDS: meperidine/PF 25mg/ml syringe IV PRN ×2 (19:54→20:14)
[2023-05-07] MEDS ORDERED: enoxaparin 40mg/0.4ml syringe SQ SCH (20:00)
--- NOTE | 2023-05-07 20:30 | NUR ---
PATIENT A&OX4, NO DRESSINGS NO DRAINAGE, 20G PIV RUE, V/S WNL, SCM INTACT, SCD ON. pain at times see emar. patient taken to 4[address] with all belongings and hooked up to monitors in room and report given to rn who has taken over patient care.
[2023-05-07] MEDS: docusate sod 100mg capsule PO SCH (20:41)
[2023-05-07] MEDS: phenazopyridine 100mg tablet PO PRN (20:44)
[2023-05-07] MEDS ORDERED: temazepam 15mg capsule PO PRN (21:00)
[2023-05-07] MEDS: ondansetron/PF 4mg/2ml inj IV PRN (21:53)
[2023-05-07] MEDS: HYDROcodone/acetaminophen 10/325mg tab PO PRN (21:53)
[2023-05-08] VITALS (7 sets, daily range): BP systolic 105–144; BP diastolic 57–89; PULSE 82–97; RESP 16–17; TEMP 97.9–98.6; O2SAT 93–97
[2023-05-08] MEDS: morphine 2 MG/ML inj. syringe IV PRN ×3 (01:12→10:48)
[2023-05-08] MEDS: HYDROcodone/acetaminophen 10/325mg tab PO PRN ×3 (04:22→13:41)
[2023-05-08] MEDS: oxybutynin 5mg tablet PO PRN ×2 (04:23→13:40)
--- NOTE | 2023-05-08 06:24 | NUR ---
Problems reprioritized. Patient report given, questions answered & plan of care reviewed with CYN PERDOMO.
[2023-05-08] MEDS: docusate sod 100mg capsule PO SCH (07:30)
[2023-05-08] MEDS: CefTRIAXone 2gm/D5W 50ml BAG 50 ML IV SCH (07:32)
[2023-05-08] MEDS: normal saline 1000ml 1,000 ML IV SCH ×2 (07:34→09:05)
[2023-05-08] MEDS: ondansetron/PF 4mg/2ml inj IV PRN ×2 (07:41→15:55)
[2023-05-08] MEDS ORDERED: CefTRIAXone 2gm/D5W 50ml BAG 50 ML IV SCH (08:00)
[2023-05-08] MEDS: phenazopyridine 100mg tablet PO PRN (10:48)
[2023-05-08] MEDS ORDERED: OXYB5TAB16 PO (11:46)
[2023-05-08] MEDS ORDERED: HYDR-3965 PO (11:46)
[2023-05-08] MEDS ORDERED: FLO0.4C PO (11:46)
[2023-05-08] MEDS ORDERED: PHEN-786 PO (11:46)
[2023-05-08 12:45] LABS: BASOPHILS % (AUTO) 0.3 % (0-1); EOSINOPHILS # (AUTO) 0.1 X10'3 (0-0.9); EOSINOPHILS % (AUTO) 1.1 % (0-6); HEMATOCRIT 37.8 % (35.0-45.0); HEMOGLOBIN 12.6 g/dl (12.0-16.0); LYMPHOCYTES # (AUTO) 1.9 X10'3 (1.1-4.8); LYMPHOCYTES % (AUTO) 18.3 % (21-51); MEAN CORPUSCULAR HEMOGLOBIN 29.5 PG (27.0-31.0); MEAN CORPUSCULAR HGB CONC 33.3 g/dL (33.0-36.5); MEAN CORPUSCULAR VOLUME 88.5 FL (78-98); MEAN PLATELET VOLUME 8.1 FL (7.4-10.4); MONOCYTES # (AUTO) 0.6 X10'3 (0-0.9); MONOCYTES % (AUTO) 6.1 % (2-12); NEUTROPHILS # (AUTO) 7.6 X10'3 (1.8-7.7); NEUTROPHILS % (AUTO) 74.2 % (42-75); PLATELET COUNT 310 X10'3 (140-440); RED BLOOD COUNT 4.27 X10'6 (4.20-5.60); RED CELL DISTRIBUTION WIDTH 13.3 % (11.5-14.5); WHITE BLOOD COUNT 10.3 X10'3 (4.5-11.0)
[2023-05-08 13:00] LABS: ALANINE AMINOTRANSFERASE 16 U/L (12-78); ALBUMIN 3.2 G/DL (3.4-5.0); ALKALINE PHOSPHATASE 43 IU/L (46-116); ANION GAP 7 (8-16); ASPARTATE AMINO TRANSFERASE 13 U/L (10-37); BILIRUBIN,TOTAL 0.4 MG/DL (0.1-1.0); BLOOD UREA NITROGEN 4 MG/DL (7-18); BUN/CREATININE RATIO 5.9 (10.0-20.0); CALCIUM 8.1 MG/DL (8.5-10.1); CHLORIDE 105 MMOL/L (99-107); CREATININE 0.68 MG/DL (0.40-0.90); GLUCOSE 92 MG/DL (70-104); POTASSIUM 3.6 MMOL/L (3.5-5.1); SODIUM 136 MMOL/L (135-145); TOTAL CARBON DIOXIDE 23.7 MMOL/L (24-32); TOTAL PROTEIN 6.5 G/DL (6.4-8.2); eCRCL 103 ML/MIN; eGFR > 90 ML/MIN
[2023-05-08] MEDS ORDERED: CIPR-259 PO (15:30)
--- NOTE | 2023-05-08 16:50 | NUR ---
Patient discharge instructions reviewed with patient and patient verbalized understanding. Patient IV dc'd cannula intact. Patient will be going to pharmacy to hand picker remaining medications. Patient was taken to vehicle via wheelchair by assistant in nursing Vanna. Patient states that she has all her belongings.
== END 2023-05-08 16:40 | disposition home or self-care (01) | DRG 465 ==
LOC: ER 09:47 → ED HOLD 13:07 → ORTHO 4S 20:30
PROVIDERS: ADMIT Internal Medicine; ATTEND Internal Medicine
PROC: BT1D1ZZ Fluoroscopy of Right Kidney, Ureter and Bladder using Low Osmolar Contrast (ICD-10-PCS; 2023-05-07)
PROC: 0T768DZ Dilation of Right Ureter with Intraluminal Device, Via Natural or Artificial Opening Endoscopic (ICD-10-PCS; principal; 2023-05-07 18:46)
DX: N13.2 Hydronephrosis with renal and ureteral calculous obstruction (principal); Z85.41 Personal history of malignant neoplasm of cervix uteri; Z90.49 Acquired absence of other specified parts of digestive tract; Z90.711 Acquired absence of uterus with remaining cervical stump
CPT/HCPCS: 36415; 74176; 74420; 80053; 81001; 82150; 83036; 83605; 83690; 84145; 85025; 85651; 87040; 87077; 87088; 87186; 96374; 96375; 99285; A4353; A4618; C1758; C1769; C2617; G0378; J0692; J0696; J1170; J1885; J2175; J2250; J2270; J2405; J2704; J3010; J7030; J7120; Q9967

== ENCOUNTER 2023-11-15 10:18 | Outpatient (CLI) | payer MEDICAID ==
[~2023-11-15 10:18] MED LIST changes: +CIPR-259 PO; -ONDA8TAB13 PO; +OXYB5TAB21 PO; +PHEN-786 PO; +iohexol 300mg/ml 100ml inj. ONE
== END 2023-11-15 23:59 | disposition home or self-care (01) ==
LOC: RAD 10:18
PROVIDERS: ATTEND Student in an Organized Health Care Education/Training Program
DX: R31.29 Other microscopic hematuria (principal)
CPT/HCPCS: 74177; J3490; Q9967

== ENCOUNTER 2023-11-25 15:04 | Emergency (ER) | payer MEDICAID ==
[~2023-11-25] VITALS: Ht 167.6 cm; Wt 85.1 kg
[~2023-11-25 15:04] MED LIST changes: -iohexol 300mg/ml 100ml inj. ONE
[2023-11-25 15:34] LABS: BILIRUBIN,URINE NEGATIVE (Neg); CLARITY,URINE CLOUDY (Clear); COLOR,URINE YELLOW (Yellow); GLUCOSE, URINE NEGATIVE (Neg); KETONES,URINE NEGATIVE (Neg); LEUKOCYTE ESTERASE ,URINE NEGATIVE (Neg); NITRITES, URINE NEGATIVE (Neg); OCCULT BLOOD,URINE LARGE (Neg); PROTEIN,URINE NEGATIVE (Neg); UROBILINOGEN,URINE 0.2 E.U/dL (0.2-1.0)
[2023-11-25 15:38] LABS: UA COLLECTION TYPE CLN CATCH MIDSTREAM
[2023-11-25 15:39] LABS: MUCUS STRANDS MANY /LPF (Neg); SQUAMOUS EPITHELIAL CELL,UR MANY /LPF (FEW)
[2023-11-25 15:40] LABS: BACTERIA,URINE 2+ /HPF (Neg); RBC,URINE 50-100 /HPF (0-2); WBC,URINE 0-4 /HPF (0-4)
[2023-11-25 15:43] LABS: URINE HCG NEGATIVE (NEG)
[2023-11-25 15:43] LABS: BASOPHILS % (AUTO) 0.2 % (0-1); EOSINOPHILS # (AUTO) 0.1 X10'3 (0-0.9); EOSINOPHILS % (AUTO) 0.6 % (0-6); HEMATOCRIT 42.7 % (35.0-45.0); HEMOGLOBIN 14.4 g/dl (12.0-16.0); LYMPHOCYTES # (AUTO) 1.9 X10'3 (1.1-4.8); LYMPHOCYTES % (AUTO) 18.5 % (21-51); MEAN CORPUSCULAR HEMOGLOBIN 28.9 PG (27.0-31.0); MEAN CORPUSCULAR HGB CONC 33.7 g/dL (33.0-36.5); MEAN CORPUSCULAR VOLUME 85.6 FL (78-98); MEAN PLATELET VOLUME 8.6 FL (7.4-10.4); MONOCYTES # (AUTO) 0.5 X10'3 (0-0.9); MONOCYTES % (AUTO) 5.3 % (2-12); NEUTROPHILS # (AUTO) 7.9 X10'3 (1.8-7.7); NEUTROPHILS % (AUTO) 75.4 % (42-75); PLATELET COUNT 313 X10'3 (140-440); RED BLOOD COUNT 4.99 X10'6 (4.20-5.60); RED CELL DISTRIBUTION WIDTH 13.4 % (11.5-14.5); WHITE BLOOD COUNT 10.5 X10'3 (4.5-11.0)
[2023-11-25 16:01] LABS: ALANINE AMINOTRANSFERASE 20 U/L (12-78); ALBUMIN 3.7 G/DL (3.4-5.0); ALBUMIN/GLOBULIN RATIO 0.9 (1.1-1.5); ALKALINE PHOSPHATASE 48 IU/L (46-116); ANION GAP 11 (8-16); ASPARTATE AMINO TRANSFERASE 15 U/L (10-37); BILIRUBIN,TOTAL 0.5 MG/DL (0.1-1.0); BLOOD UREA NITROGEN 7 MG/DL (7-18); BUN/CREATININE RATIO 8.5 (10.0-20.0); CALCIUM 8.6 MG/DL (8.5-10.1); CHLORIDE 104 MMOL/L (99-107); CREATININE 0.82 MG/DL (0.40-0.90); GLUCOSE 139 MG/DL (70-104); LIPASE 18 U/L (16-77); POTASSIUM 3.5 MMOL/L (3.5-5.1); SODIUM 137 MMOL/L (135-145); TOTAL CARBON DIOXIDE 22.3 MMOL/L (24-32); TOTAL PROTEIN 7.6 G/DL (6.4-8.2); eCRCL 85 ML/MIN; eGFR 77 ML/MIN
[2023-11-25] MEDS ORDERED: ketorolac trometh. 30mg/ml inj. IV ONE (17:00)
[2023-11-25] MEDS: normal saline 1000ML IV soln IVB ONE (18:10)
[2023-11-25] MEDS: ketorolac tromethamine 15mg/ml inj. IV ONE (18:10)
[2023-11-25 19:28] VITALS: BP 130/70; PULSE 78; RESP 16; TEMP 98.8; O2SAT 97
== END 2023-11-25 19:31 | disposition home or self-care (01) ==
LOC: ER 15:05
DX: R10.2 Pelvic and perineal pain (principal); R31.9 Hematuria, unspecified; Z88.0 Allergy status to penicillin; Z90.49 Acquired absence of other specified parts of digestive tract; Z90.710 Acquired absence of both cervix and uterus
CPT/HCPCS: 36415; 74176; 76770; 80053; 81001; 81025; 83690; 85025; 96361; 96374; 99285; J1885; J7030

== ENCOUNTER → 2024-05-30 | Emergency (ER) | payer MEDICAID ==
[~2024-05-30] VITALS: Ht 167.6 cm; Wt 75.0 kg
[~2024-05-30] MED LIST changes: +DICY20TA17 PO; +IVER3TAB2 PO; +ONDA-243 PO
[2024-05-31 01:04] LABS: BASOPHILS % (AUTO) 0.3 % (0-1); EOSINOPHILS % (AUTO) 0.3 % (0-6); HEMATOCRIT 42.7 % (35.0-45.0); HEMOGLOBIN 14.9 g/dl (12.0-16.0); LYMPHOCYTES # (AUTO) 2.6 X10'3 (1.1-4.8); LYMPHOCYTES % (AUTO) 23.9 % (21-51); MEAN CORPUSCULAR HEMOGLOBIN 29.2 PG (27.0-31.0); MEAN CORPUSCULAR HGB CONC 34.8 g/dL (33.0-36.5); MEAN CORPUSCULAR VOLUME 83.8 FL (78-98); MEAN PLATELET VOLUME 8.4 FL (7.4-10.4); MONOCYTES # (AUTO) 0.8 X10'3 (0-0.9); MONOCYTES % (AUTO) 7.4 % (2-12); NEUTROPHILS # (AUTO) 7.4 X10'3 (1.8-7.7); NEUTROPHILS % (AUTO) 68.1 % (42-75); PLATELET COUNT 334 X10'3 (140-440); RED BLOOD COUNT 5.09 X10'6 (4.20-5.60); RED CELL DISTRIBUTION WIDTH 13.3 % (11.5-14.5); WHITE BLOOD COUNT 10.9 X10'3 (4.5-11.0)
[2024-05-31 01:17] LABS: ALANINE AMINOTRANSFERASE 15 U/L (12-78); ALBUMIN 4.3 G/DL (3.4-5.0); ALBUMIN/GLOBULIN RATIO 1.1 (1.1-1.5); ALKALINE PHOSPHATASE 61 IU/L (46-116); ANION GAP 12 (8-16); ASPARTATE AMINO TRANSFERASE 19 U/L (10-37); BILIRUBIN,TOTAL 0.8 MG/DL (0.1-1.0); BLOOD UREA NITROGEN 7 MG/DL (7-18); CALCIUM 9.1 MG/DL (8.5-10.1); CHLORIDE 103 MMOL/L (99-107); CREATININE 0.87 MG/DL (0.40-0.90); GLUCOSE 104 MG/DL (70-104); POTASSIUM 3.4 MMOL/L (3.5-5.1); SODIUM 139 MMOL/L (135-145); TOTAL CARBON DIOXIDE 23.6 MMOL/L (24-32); TOTAL PROTEIN 8.1 G/DL (6.4-8.2); eCRCL 79 ML/MIN; eGFR 71 ML/MIN
[2024-05-31 03:10] VITALS: BP 125/60; PULSE 78; RESP 16; TEMP 98.6; O2SAT 98
== END | disposition home or self-care (01) ==
LOC: ER 23:49
DX: R11.2 Nausea with vomiting, unspecified (principal); B88.9 Infestation, unspecified; Z88.0 Allergy status to penicillin; Z79.2 Long term (current) use of antibiotics; Z79.899 Other long term (current) drug therapy; Z90.49 Acquired absence of other specified parts of digestive tract; Z90.710 Acquired absence of both cervix and uterus
CPT/HCPCS: 36415; 80053; 85025; 99283